=== PATIENT | male | born 1955 | race Caucasian/White ===

== ENCOUNTER 2019-01-25 16:37 | Inpatient (IN) ==
[2019-01-25] MEDS ORDERED: VANCOMYCIN 1 GM/NS 1 GM/250 ML IVPB IV ONE (17:13)
[2019-01-25] MEDS ORDERED: ROCEPHIN 1 GM in NS 50 ML IV ONE (17:13)
--- NOTE | 2019-01-25 17:42 | PROVIDER DOCUMENTATION ---
This chart was entered by Monse Britton Scribe, acting as scribe for Bucky Bustamante MD. HPI-General Adult - General Source: patient - History of Present Illness -Gen Adult Nature of Presenting Problems: 64 y/o male presents to ED with cc of infected L great toe. Pt reports he began soaking it in epsom salt a few days ago and peeled the skin off of his toe. Pt has hx diabetes. Pt states he is unsure when he last had a tetanus shot. Pt is alert and oriented. Location of Pain/Injury: reports: other (L great toe) Pain Radiation: reports: no radiation Quality of Pain: reports: aching Severity: reports: moderate Onset/Duration: reports: unsure Timing: reports: still present Context/Activities at Onset: reports: none Modifying Factors: improves with: nothing Associated Symptoms: reports: other (infected L great toe) Similar Symptoms Previously?: No Recently seen or treated by another doctor?: No <Bucky Bustamante - Last Filed: 01/25/19 17:42> <Herman Morrison - Last Filed: 01/25/19 19:40> - General Chief Complaint: Extremity Pain Stated Complaint: INFECTED TOE Time Seen by Provider: 01/25/19 16:52 Allergies/Adverse Reactions: Patient Allergies Allergy/AdvReac Type Severity Reaction Status Date / Time No Known Allergies Allergy Verified 04/02/18 13:37 Home Medications: Home Medication List Medication Instructions Recorded Confirmed Last Taken Type Paroxetine HCl [Paxil] 40 mg PO DAILY #0 tablet 01/28/15 11/09/15 Unknown Rx Buprenorphine/Naloxone S.l. 1 each SL BID #60 strip 11/11/15 Unknown Rx [Suboxone 8 mg/2 mg] Chlordiazepoxide [Librium] 25 mg PO Q6H PRN PRN #30 capsule 11/11/15 Unknown Rx Review of Systems - Adult - REVIEW OF SYSTEMS - ADULT Constitutional: denies: chills, fever Eyes: reports: no symptoms reported Ears, Nose, Mouth & Throat: reports: no symptoms reported Cardiovascular: denies: chest pain, palpitations Respiratory: denies: cough, shortness of breath Gastrointestinal: denies: abdominal pain, diarrhea, nausea, vomiting Genitourinary: reports: no symptoms reported Musculoskeletal: denies: back pain, joint pain Integumentary: reports: no symptoms reported Neurological: denies: dizziness/vertigo, seizure Psychiatric: reports: no symptoms reported Endocrine: reports: no symptoms reported Hematologic/Lymphatic: reports: no symptoms reported Allergic/Immunologic: reports: no symptoms reported All Other Systems: Reviewed and Negative <Bucky Bustamante - Last Filed: 01/25/19 17:42> Past History - Adult - PAST MEDICAL HISTORY-ADULT Review of Records: reports: Old Records Reviewed, Nursing Assessment Review, Medications Reviewed Major Childhood Illnesses: reports: denies history Cardiovascular: reports: denies history Respiratory: reports: denies history Gastrointestinal: reports: GERD Genitourinary: reports: denies history Musculoskeletal: reports: chronic pain Neurological: reports: denies history Psychiatric: reports: anxiety, depression, suicide attempt, schizophrenia Endocrine/Immune: reports: denies history - PRIOR SURGERIES/PROCEDURES Surgical/Procedure History: reports: orthopedic (extremity) (L arm), other (sinus) - IMMUNIZATION STATUS Childhood Immunizations: See Nurse Assessment Flu Vaccine: See Nurse Assessment - FAMILY HISTORY Family History: reviewed, not pertinent - SOCIAL HISTORY Smoking: greater than 1 pack/day Provider spent 3-5 mins advising pt. on dangers of tobacco.: Discussed manners to quit use, and f/u contacts for add'l counseling. Substance Use: none/never Alcohol Use Frequency: occasionally Living Situation: family <Bucky Bustamante - Last Filed: 01/25/19 17:42> Physical Exam-General - PHYSICAL EXAM-ADULT Initial Vital Signs Reviewed: Yes - CONSTITUTIONAL General Appearance: alert, no apparent distress, other (disheveled; poor hygiene) - EYES Eyes: PERRL/EOMI, pink conjunctivae - HEAD, EARS, NOSE, MOUTH & THROAT HENMT: normocephalic/atraumatic, moist mucous membranes - NECK Neck: non-tender, full range of motion - RESPIRATORY Respiratory: chest non-tender, lungs clear, normal breath sounds - CARDIOVASCULAR Cardiovascular: normal peripheral pulses, regular rate, rhythm - MUSCULOSKELETAL Extremity: normal range of motion, non-tender, normal gait - SKIN Integumentary: normal color, warm/dry, other (bilateral feet covered in dirt; L hallux hypertrophic, dystrophic with marked soft tissue swelling and blanching; erythema extending from the base of the L hallux, over the dorsal aspect of the L foot, and up to the distal rivers; tree cellulitis process starting in the R hallux) - NEUROLOGIC Neurologic: grossly normal - PSYCHIATRIC Psych/Mental Status: normal mood/affect, oriented x 3, disheveled, other (poor hygiene) <Bucky Bustamante - Last Filed: 01/25/19 17:42> Progress - PLAN OF CARE/RESULTS Progress/Plan/Lab Results: Vital Signs - 8 hr 01/25/19 16:42 Temperature 98.5 F Pulse Rate 102 H Respiratory Rate 17 Blood Pressure 145/90 O2 Sat by Pulse Oximetry 96 <Bucky Bustamante - Last Filed: 01/25/19 17:42> - PLAN OF CARE/RESULTS Progress/Plan/Lab Results: Vital Signs - 8 hr 01/25/19 16:42 01/25/19 17:14 01/25/19 17:16 Temperature 98.5 F Pulse Rate 102 H Respiratory Rate 17 23 Blood Pressure 145/90 130/71 O2 Sat by Pulse Oximetry 96 96 96 01/25/19 17:30 01/25/19 18:00 01/25/19 18:30 Temperature Pulse Rate 85 80 85 Respiratory Rate 16 21 21 Blood Pressure O2 Sat by Pulse Oximetry 96 93 L 95 01/25/19 19:02 01/25/19 19:30 01/25/19 19:34 Temperature Pulse Rate 89 84 91 H Respiratory Rate 18 15 16 Blood Pressure 135/79 134/72 O2 Sat by Pulse Oximetry 95 95 95 Laboratory Results - last 24 hr 01/25/19 01/25/19 17:40 17:40 WBC 8.86 RBC 4.12 L Hgb 12.9 L Hct 37.3 L MCV 90.5 MCH 31.3 H MCHC 34.6 RDW Std Deviation 12.5 Plt Count 159 MPV 9.2 Immature Gran % (Auto) 0.6 H Neut % (Auto) 71.2 Lymph % (Auto) 16.5 L Franklin % (Auto) 8.8 Eos % (Auto) 2.7 Baso % (Auto) 0.2 Immature Gran # (Auto) 0.05 H Neut # (Auto) 6.31 Lymph # (Auto) 1.46 Franklin # (Auto) 0.78 H Eos # (Auto) 0.24 Baso # (Auto) 0.02 ESR 62 H Sodium 134 L Potassium 3.8 Chloride 93 L Carbon Dioxide 27 Anion Gap 14 BUN 12 Creatinine 1.0 Estimated GFR/1.73 m2 > 60 BUN/Creatinine Ratio 12 Glucose 286 H Calculated Osmolality 278 Calcium 8.8 Total Bilirubin 0.36 AST 18 ALT 22 Alkaline Phosphatase 99 Total Protein 7.5 Albumin 3.3 L Globulin 4.2 Albumin/Globulin Ratio 0.8 Orders Category Date Time Status BLOOD CULTURE [BLDCUL] Stat Lab 01/25/19 17:42 Results CBC WITH DIFF [HEME] Stat Lab 01/25/19 17:40 Completed COMPREHENSIVE METABOLIC PANEL [CHEM] Stat Lab 01/25/19 17:40 Completed SED RATE [HEME] Stat Lab 01/25/19 17:40 Completed CefTRIAXONE [Rocephin] 1 gm Med 01/25/19 17:13 Discontinued 0.9% Sodium Chloride Inj [Ns] 50 ml IV NOW Morphine Med 01/25/19 19:34 Discontinued 4 mg IV NOW ONE Vancomycin 1 gm/Ns Med 01/25/19 17:13 Discontinued 1 gm in 250 ml IV NOW Pt signed out to me by Dr. Bustamante pending admission, spoke with Dr. Johnson and will admit to his service Result Diagrams: 01/25/19 17:40 01/25/19 17:40 <Herman Morrison - Last Filed: 01/25/19 19:40> Departure <Bucky Bustamante - Last Filed: 01/25/19 17:42> - Departure Date of Disposition Decision: 01/25/19 Time of Disposition Decision: 19:39 Certified Medical Emergency: Emergent - Critical Care Note This patient required my direct & personal management of CC.: No <Herman Morrison - Last Filed: 01/25/19 19:40> - Departure DIAGNOSIS: Foot ulcer due to secondary DM Cellulitis Qualifiers: Site of cellulitis: extremity Site of cellulitis of extremity: lower extremity Laterality: left Qualified Code(s): L03.116 - Cellulitis of left lower limb Disposition: ADMITTED INPATIENT 09 Condition: Stable Referrals and Follow-Ups: None,PCP [NON-STAFF PROVIDER] - Discharge Education: Steps to Quit Smoking, [id number] Attestation - Physician/ JESSE Attestation Patient care was provided by Advanced Practice Provider:: No The physician spent face to face time with patient:: Yes (e) Advanced Practice Provider documentation review:: Supervising physician onsite and consulted in the evaluation and care of this patient. The physician did have a face to face encounter with the patient. <Bucky Bustamante - Last Filed: 01/25/19 17:42> This chart was documented by the indicated scribe, (Monse Britton Scribe) and accurately reflects the services I performed and decisions made by me, Bucky Bustamante MD, as attested by the provider's signature.
[2019-01-25 18:05] LABS: BASO# 0.02 X1000 (0.0-0.2); BASO% 0.2 % (0.0-0.8); EOS# 0.24 X1000 (0.0-0.7); EOS% 2.7 % (0.0-10.0); HEMATOCRIT 37.3 % (42.0-52.0); HEMOGLOBIN 12.9 g/dL (14.0-18.0); IMM GRAN# 0.05 X1000 (0.0-0.04); IMM GRAN% 0.6 % (0.0-0.5); LYMPH# 1.46 X1000 (1.2-3.4); LYMPH% 16.5 % (20.5-51.1); MCH 31.3 PG (27-31); MCHC 34.6 g/dL (33-37); MCV 90.5 FL (81-99); MONO# 0.78 X1000 (0.11-0.59); MONO% 8.8 % (1.7-9.3); MPV 9.2 FL (7.4-10.4); NEUT# 6.31 X1000 (1.4-6.5); NEUT% 71.2 % (42.2-75.2); PLT 159 X1000 (130-400); RBC 4.12 XMIL (4.7-6.1); RDW 12.5 % (11.5-14.5); WBC 8.86 X1000 (4.8-10.8)
[2019-01-25 18:19] LABS: AGAP 14; ALB/GLOB RATIO 0.8; ALBUMIN 3.3 g/dL (3.5-5.0); ALKALINE PHOSPHATASE 99 U/L (32-122); BUN 12 mg/dL (8-22); CALCIUM 8.8 mg/dL (8.8-10.2); CHLORIDE 93 mmol/L (98-107); COSMO 278; ESTIMATED GFR > 60; GLUCOSE 286 mg/dL (70-104); GOT 18 U/L (10-34); GPT 22 U/L (10-44); POTASSIUM 3.8 mmol/L (3.5-5.1); SODIUM 134 mmol/L (136-145); TCO2 27 mmol/L (25-35); TOTAL BILIRUBIN 0.36 mg/dL (0.20-1.00); TOTAL PROTEIN 7.5 g/dL (6.3-8.3)
[2019-01-25 19:05] LABS: SED RATE 62 mm/hr (0-15)
[2019-01-25] MEDS ORDERED: MORPHINE IV ONE (19:34)
--- NOTE | 2019-01-25 21:16 | HISTORY AND PHYSICAL ---
PRIMARY CARE PHYSICIAN: Dr. Renetta Yang. CHIEF COMPLAINT: Left toe pain. HISTORY OF PRESENTING ILLNESS: A 64-year-old male with a history of diabetes mellitus type 2, hypertension, COPD who had presented to emergency department with 4 days history of having worsening left toe pain and drainage from a wound around the toe. He states that his toenail was coming out. He kept on trying to cut it and he was soaking it on Epson salt. He states that after that the wound in the toe started getting larger and his toe started swelling and draining foul material. He was evaluated in the emergency department. It seemed that his toe was infected and due to his presenting symptoms, he will need admission for further management. At the time of my examination, patient denied any headache, fever, chills, chest pain, shortness of breath or any weight changes but complained of left toe pain. PAST MEDICAL HISTORY: Includes diabetes mellitus type 2, hypertension, COPD. PAST SURGICAL HISTORY: Sinus surgery. ALLERGIES: No known drug allergies. CURRENT MEDICATIONS: Include Suboxone 8 mg 1 tablet sublingual b.i.d., Librium 25 mg p.o. q.6 hours, Paxil 40 mg p.o. daily. SOCIAL HISTORY: A 40 pack years history of smoking. Denies any alcohol use. Admits to IV drug abuse in the past. FAMILY HISTORY: No history of coronary disease. REVIEW OF SYSTEMS: Fourteen point review of system is as in HPI. Other systems negative. PHYSICAL EXAMINATION: GENERAL: Cooperative, friendly male. He is resting comfortably now. VITAL SIGNS: Temperature 98.5 degrees, pulse 102, respirations 17, blood pressure 145/90. HEENT: Atraumatic, normocephalic. Extraocular movements intact. PERRLA. NECK: Supple. CHEST: Clear to auscultation. CARDIOVASCULAR: Regular rate and rhythm. ABDOMEN: Soft. Positive bowel sounds. EXTREMITIES: Left great toe seems infected and moderate erythema and edema. : No bladder distention. SKIN: Warm. NEUROLOGIC: Nonfocal. LABORATORIES AND STUDIES: WBC is 8.86, hemoglobin 12.9, hematocrit 37.3, platelets 159,000. Sodium 134, potassium 3.8, chloride 93, CO2 27, BUN is 12, creatinine is 1.0, glucose 286. ASSESSMENT: A 64-year-old male with a history of diabetes mellitus type 2, hypertension, chronic obstructive pulmonary disease, who presented to the emergency department with 4 days history of having wound infection on his left great toe. He states that it has been worsening and is having some foul discharge from it. He was evaluated in the emergency department. Due to his presenting symptoms, he will need admission for further management. 1. Left great toe wound infection. 2. Diabetes mellitus type 2. 3. Hypertension. 4. Chronic obstructive pulmonary disease. PLAN: 1. We will admit patient to medical floor with telemetry. 2. We will check wound culture. Start patient on IV antibiotics. 3. We will consult General Surgery for possible debridement. 4. Monitor blood glucose and put the patient on sliding scale insulin regimen. 5. Monitor blood pressure. Resume antihypertensive agent. 6. We will continue with Rae [email or web address]. 7. I counseled the patient on smoking cessation. 8. Put patient on DVT prophylaxis with SCD. 9. We will continue to follow reassess, make further recommendation based on patient's clinical course. cc: Jose Johnson MD
[2019-01-25] MEDS ORDERED: ZOFRAN IV PRN (21:38)
[2019-01-25] MEDS ORDERED: VANCOMYCIN IV PER PHARMACY MISC SCH (21:38)
[2019-01-25] MEDS ORDERED: VANCOMYCIN 2,500 MG in NS 500 ML IV ONE (23:00)
[2019-01-25] MEDS: LOVENOX SUBQ SCH (23:37)
[2019-01-26] MEDS ORDERED: NICODERM PATCH TD ONE (00:07)
[2019-01-26] MEDS: MORPHINE IV PRN ×3 (00:36→20:23)
[2019-01-26 05:08] LABS: BASO# 0.02 X1000 (0.0-0.2); BASO% 0.3 % (0.0-0.8); EOS# 0.27 X1000 (0.0-0.7); EOS% 3.5 % (0.0-10.0); HEMATOCRIT 34.2 % (42.0-52.0); HEMOGLOBIN 11.6 g/dL (14.0-18.0); IMM GRAN# 0.05 X1000 (0.0-0.04); IMM GRAN% 0.6 % (0.0-0.5); LYMPH# 1.74 X1000 (1.2-3.4); LYMPH% 22.5 % (20.5-51.1); MCH 30.9 PG (27-31); MCHC 33.9 g/dL (33-37); MCV 91.2 FL (81-99); MONO# 0.76 X1000 (0.11-0.59); MONO% 9.8 % (1.7-9.3); MPV 8.9 FL (7.4-10.4); NEUT# 4.88 X1000 (1.4-6.5); NEUT% 63.3 % (42.2-75.2); PLT 180 X1000 (130-400); RBC 3.75 XMIL (4.7-6.1); RDW 12.2 % (11.5-14.5); WBC 7.72 X1000 (4.8-10.8)
[2019-01-26 05:48] LABS: INR 1.12; PROTIME 14.5 Seconds (11.0-16.0)
[2019-01-26 05:54] LABS: AGAP 9; BUN 10 mg/dL (8-22); CALCIUM 8.6 mg/dL (8.8-10.2); CHLORIDE 98 mmol/L (98-107); COSMO 279; CREATININE 0.9 mg/dL (0.7-1.2); ESTIMATED GFR > 60; GLUCOSE 280 mg/dL (70-104); POTASSIUM 3.5 mmol/L (3.5-5.1); SODIUM 135 mmol/L (136-145); TCO2 28 mmol/L (25-35)
[2019-01-26] MEDS ORDERED: NS 250 ML ONE (08:01)
[2019-01-26] MEDS: VANCOMYCIN 1,300 MG in NS 250 ML IV SCH ×2 (11:40→23:57)
--- NOTE | 2019-01-26 14:05 | Diag Imaging Result Doc PS360 ---
FOOT 2 VIEWS LEFT - 01/26/2019 INDICATION: Rule out left toe osteomyelitis TECHNIQUE: COMPARISON: None FINDINGS: There is significant soft tissue swelling over the great toe. There is soft tissue gas within the plantar surface of the great toe. No foreign body. No fracture or erosion. IMPRESSION: Soft tissue swelling with soft tissue gas at the plantar surface of the great toe. Electronically signed by Rory Avila 01/26/2019 2:03 PM
--- NOTE | 2019-01-26 15:27 | PROGRESS NOTE ---
DATE: 01/26/2019 INTERVAL HISTORY: He was admitted for a left great toe wound which he had developed since at least a week ago. He was started on broad-spectrum antibiotics. He did have temperature of 100.2 degrees during hospital admission, though he was only briefly tachycardic, and his WBC count was normal. SUBJECTIVE: He is feeling fine. He complains of some pain over his left great toe, but he thinks the swelling is better. He is diabetic, noninsulin dependent. He is not sure whether it is well controlled or not. He denies any chest pain, shortness of breath. He does use inhaler at home for chronic obstructive pulmonary disease. He denies any nausea, vomiting, or abdominal pain. OBJECTIVE: Vitals: Temperature 97.8 degrees, pulse 85, respiratory rate 21, blood pressure 119/61, he is saturating 99% on room air. On physical examination, obese, not in any acute distress. Oral cavity is moist. Air entry bilaterally equal. No wheeze or rhonchi, mild inspiratory crackles in bilateral bases. S1, S2 normal, appears irregularly irregular. No murmur, rub, or gallop. Abdomen is obese, soft, nontender. Right lower extremity appears normal. Left lower extremity has edema extending up to midshin level. There is a pus- filled left great toe with surrounding erythema. I could not appreciate any dorsalis pedis or posterior tibial pulses because of edema. He does have significant tenderness on foot movement. LABS: He does not have leukocytosis, normal hemoglobin. His electrolytes are normal, he does have hyperglycemia. ASSESSMENT AND PLAN: 1. Left great toe diabetic foot infection, likely necrotic and necrotizing cellulitis. I am awaiting Surgery team's recommendation. I will keep him on intravenous fluids, intravenous vancomycin, and I will change his intravenous ceftriaxone to intravenous Zosyn for diabetic foot infection. I will keep him on intravenous morphine as needed for pain. His foot x-ray does detect gas which suggests necrotizing infection. He may need prompt surgical intervention. Surgery team has been paged. 2. History of zew-cwkaeiy-[id number] diabetes mellitus with hyperglycemia. Follow up hemoglobin A1c. I will start him on sliding scale insulin with fingersticks every 6 hours. He was counseled about weight reduction. 3. Irregular heart rhythm on examination. A stat magnesium level has been checked, and I am awaiting EKG. He denies known history of coronary artery disease or stent. 4. History of intravenous drug use and opioid dependence. He has been on a buprenorphine maintenance program. I am keeping him on intravenous morphine at the moment. 5. Others. Continue enoxaparin for DVT prophylaxis. DISPOSITION: I will continue to monitor patient in telemetry unit, awaiting further surgical recommendations as he may need incision debridement of his wound. Plan of care discussed with him. His questions have been answered. cc: Basil Aguilar MD MTDD
--- NOTE | 2019-01-26 15:40 | EKG Report ---
Test Performed on : 01/26/2019 2:05:14 PM Test Reason : Baseline EKG Blood Pressure : / mmHG Vent. Rate : 083 BPM Atrial Rate : 083 BPM P-R Int : 164 ms QRS Dur : 092 ms QT Int : 382 ms P-R-T Axes : 033 -26 026 degrees QTc Int : 448 ms Sinus rhythm. with premature atrial complexes. with aberrant conduction. Otherwise normal ECG When compared with ECG of 31-DEC-2012 13:29, aberrant conduction. is now present Confirmed by Kasey CARDOZA, Adithya Garcia ([id number]) on 01/27/2019 11:07:22 PM
[2019-01-26] MEDS: ZOSYN 3.375 GM in NS 50 ML IV SCH ×2 (15:59→20:22)
[2019-01-26] MEDS: LR 1,000 ML IV SCH (16:00)
[2019-01-26] MEDS ORDERED: PAXIL PO ONE (17:33)
[2019-01-26] MEDS: HUMALOG SUBQ SCH ×2 (18:08→23:37)
--- NOTE | 2019-01-26 19:43 | GENERAL SURGERY CONSULTATION ---
DATE: 01/26/2019 REASON FOR CONSULTATION: Left first toe infection. CHIEF COMPLAINT: Swelling left first toe. HPI: A 64-year-old gentleman poorly-controlled diabetes. He presented with swelling and erythema left foot after what he says is an injury to his left first toe. He soaked it in Epson salt and became acutely worse. He has had purulent drainage, low-grade fevers and he was admitted where he was found to be hyperglycemic. He denies any previous blood vessel surgery. MEDICAL HISTORY: Diabetes, hypertension, COPD. SURGICAL HISTORY: He has had sinus operation but no vascular procedure. MEDICATION: Negative for anticoagulants but he does take Suboxone and Librium. SOCIAL HISTORY: Heavy smoking history pack a day. No alcohol, IV drug use in the past. He has a significant other here with him. FAMILY HISTORY: Reviewed, noncontributory. REVIEW OF SYSTEMS: Ten point review of systems was performed and negative otherwise mentioned in HPI. EXAM: He is afebrile, pulse 73, blood pressure 112/51, oxygen saturation 94%.General: He is alert, no acute distress. HEENT: No scleral icterus. No cervical mass. Cardiovascular: Normal rate. Pulmonary: No increased work of breathing. Abdomen: Soft, nontender. Integument: Warm and dry. Psychiatric: Appropriate affect. Peripheral vascular: He has bilateral lower extremity edema, palpable pedal pulses. Musculoskeletal: He has a blister to his right first toe distally but no cellulitis. No purulent drainage. His left first toe has significant deformity with purulent drainage at the base and significant edema with cellulitis extending up to the calf level. There is no crepitus proximally. Lymphatic: No inguinal adenopathy. LAB: White count 7, hematocrit 34. Creatinine 0.9, glucose has been as high as 314, albumin is 3.3. I reviewed a foot x-ray that shows soft tissue swelling and plantar soft tissue gas. ASSESSMENT AND PLAN: 64-year-old gentleman with severe infection of left first toe cellulitis extending proximally. Recommended amputation of his toe. He does seem to have adequate perfusion. I discussed and stressed the importance of smoking cessation, glucose control. Make him n.p.o. at midnight, take him operating room tomorrow for left first toe amputation and debridement of right first toe. cc: Ryan Richardson MD
[2019-01-26] MEDS ORDERED: ROCEPHIN 1 GM in NS 50 ML IV SCH (20:00)
[2019-01-26] MEDS: LOVENOX SUBQ SCH (21:06)
[2019-01-27] MEDS: MORPHINE IV PRN ×3 (00:39→15:16)
[2019-01-27] MEDS: ZOSYN 3.375 GM in NS 50 ML IV SCH ×4 (02:28→20:55)
[2019-01-27] MEDS: LR 1,000 ML IV SCH ×2 (05:37→15:43)
[2019-01-27] MEDS: HUMALOG SUBQ SCH ×4 (05:39→22:26)
[2019-01-27 07:13] LABS: BASO# 0.03 X1000 (0.0-0.2); BASO% 0.5 % (0.0-0.8); EOS# 0.23 X1000 (0.0-0.7); EOS% 4.1 % (0.0-10.0); HEMATOCRIT 35.1 % (42.0-52.0); HEMOGLOBIN 11.5 g/dL (14.0-18.0); IMM GRAN# 0.03 X1000 (0.0-0.04); IMM GRAN% 0.5 % (0.0-0.5); LYMPH# 1.58 X1000 (1.2-3.4); LYMPH% 28.4 % (20.5-51.1); MCH 30.3 PG (27-31); MCHC 32.8 g/dL (33-37); MCV 92.4 FL (81-99); MONO# 0.54 X1000 (0.11-0.59); MONO% 9.7 % (1.7-9.3); NEUT# 3.16 X1000 (1.4-6.5); NEUT% 56.8 % (42.2-75.2); PLT 185 X1000 (130-400); RDW 12.4 % (11.5-14.5); WBC 5.57 X1000 (4.8-10.8)
[2019-01-27 07:18] LABS: HEMOGLOBIN A1C 7.6 % (4.8-6.0)
[2019-01-27 07:47] LABS: AGAP 9; BUN 10 mg/dL (8-22); CHLORIDE 102 mmol/L (98-107); COSMO 285; CREATININE 1.2 mg/dL (0.7-1.2); ESTIMATED GFR > 60; GLUCOSE 180 mg/dL (70-104); POTASSIUM 3.8 mmol/L (3.5-5.1); SODIUM 141 mmol/L (136-145); TCO2 30 mmol/L (25-35)
[2019-01-27] MEDS: PAXIL PO SCH (08:12)
[2019-01-27] MEDS ORDERED: PROTONIX IV ONE (08:33)
[2019-01-27] MEDS ORDERED: SODIUM CHLORIDE 0.9% INJ ONE (08:33)
[2019-01-27] MEDS: VANCOMYCIN 1,300 MG in NS 250 ML IV SCH ×2 (11:03→23:15)
[2019-01-27] MEDS: DILAUDID ONE ×7 (17:47→18:18)
--- NOTE | 2019-01-27 18:11 | OPERATIVE NOTE ---
PROCEDURE DATE: 01/27/2019 SURGEON: Ryan Richardson MD PREOPERATIVE DIAGNOSES: 1. Left first toe diabetic infection. 2. Right first toe ulcer. POSTOPERATIVE DIAGNOSES: 1. Left first toe diabetic infection. 2. Right first toe ulcer. PROCEDURE PERFORMED: 1. Amputation of the left first toe in a transmetatarsal fashion. 2. Excisional debridement of right first toe, 3 x 2 cm, down to subcutaneous tissue. ESTIMATED BLOOD LOSS: 20 mL. SPECIMENS: Left first toe and distal metatarsal. INDICATIONS: A gentleman with poorly controlled diabetes, who has a severely swollen, purulent draining, left first toe with cellulitis. He also has a superficial ulceration of the right first toe. FINDINGS: Necrosis and purulence of his left first toe with superficial ulceration containing pus in the right first toe. OPERATIVE NOTE: Risks, benefits, and alternatives were discussed patient and he consented to the procedure, seen preoperatively where the surgery site was confirmed and marked. He was taken to the operating room and placed in supine position. General anesthesia was induced. He was on scheduled antibiotics. His bilateral feet were prepped with Betadine and draped in the usual fashion. After a time-out, an elliptical incision was made around the left first toe and carried down through the joint and then we amputated the distal metatarsal head at the distal portion of the metatarsal, removing the sesamoid bones. There was good pulsatile bleeding noted. We irrigated the wound after debriding back the metatarsal with a rongeur forceps and we dressed the wound with Vashe dressings, Kerlix, and an Issa wrap. We then turned our attention the right distal first toe. Using a #15 blade, we excised the lesion back to healthy bleeding tissue. There was some purulence here that was expressed, but the underlying was healthy. A similar Vashe dressing was applied. He was woken and transferred to Recovery. There was no complication. Counts were correct. I attempted to speak with his family. cc: Ryan Richardson MD
--- NOTE | 2019-01-27 19:51 | PROGRESS NOTE ---
DATE: 01/27/2019 SUBJECTIVE: The patient is resting comfortably in bed. He has no complaints. OBJECTIVE: Vital Signs: Temperature 97.6 degrees, blood pressure 124/67, heart rate 92, respirations 18, O2 saturations 97% on room air. General: This is a morbidly obese male lying in bed in no acute distress. Heart: S1, S2 normal. Regular rate and rhythm. Lungs: Clear to auscultation bilaterally. Abdomen: Positive bowel sounds. Soft, nontender, nondistended. Extremities: The left and right feet are wrapped in clean, dry dressing. Neurologic: The patient is alert and oriented x4. LABS: Reviewed. ASSESSMENT AND PLAN: 1. 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 Continue with wound care and antibiotic therapy as directed by the general surgeon. 2. Diabetes mellitus. Continue on sliding scale insulin. 3. Morbid obesity. Aware. 4. Tobacco dependence. The patient has been counseled about smoking cessation. 5. Situational depression. Continue on Paxil. 6. Deep vein thrombosis prophylaxis. Continue on Lovenox. cc: Angie Matthews MD MTDD
[2019-01-27] MEDS: LOVENOX SUBQ SCH (20:55)
[2019-01-28] MEDS: MORPHINE IV PRN ×5 (05:03→19:14)
[2019-01-28] MEDS: LR 1,000 ML IV SCH (05:05)
[2019-01-28] MEDS: ZOSYN 3.375 GM in NS 50 ML IV SCH ×3 (06:14→17:16)
[2019-01-28] MEDS: HUMALOG SUBQ SCH (06:14)
[2019-01-28] MEDS: HUMULIN R SUBQ SCH ×4 (06:34→21:34)
[2019-01-28] MEDS ORDERED: INSULIN PEN NEEDLES ONE (06:58)
[2019-01-28 07:04] LABS: HEMATOCRIT 32.4 % (42.0-52.0); HEMOGLOBIN 10.8 g/dL (14.0-18.0); MCH 30.7 PG (27-31); MCHC 33.3 g/dL (33-37); MPV 8.6 FL (7.4-10.4); RBC 3.52 XMIL (4.7-6.1); RDW 12.2 % (11.5-14.5); WBC 5.32 X1000 (4.8-10.8)
[2019-01-28 07:36] LABS: AGAP 10; BUN 15 mg/dL (8-22); CALCIUM 8.4 mg/dL (8.8-10.2); CHLORIDE 97 mmol/L (98-107); COSMO 285; CREATININE 1.1 mg/dL (0.7-1.2); ESTIMATED GFR > 60; GLUCOSE 356 mg/dL (70-104); POTASSIUM 4.3 mmol/L (3.5-5.1); SODIUM 135 mmol/L (136-145); TCO2 28 mmol/L (25-35)
[2019-01-28] MEDS: PAXIL PO SCH (08:58)
[2019-01-28] MEDS ORDERED: LEVEMIR SUBQ SCH ×2 (09:00)
[2019-01-28] MEDS: VANCOMYCIN 1,300 MG in NS 250 ML IV SCH ×2 (12:20→22:16)
[2019-01-28] MEDS: NICODERM PATCH TD SCH (15:25)
--- NOTE | 2019-01-28 19:34 | PROGRESS NOTE ---
DATE: 01/28/2019 SUBJECTIVE: The patient is sitting up at the edge of bed, eating. He has no complaints. OBJECTIVE: Vital signs: Temperature 98.2, blood pressure 142/74, heart rate 89, respirations 19, O2 saturation 96% on room air. General: This is an elderly, overweight male sitting up at the edge of the bed in no acute distress. Heart: S1, S2 normal. Regular rate and rhythm. Lungs: Clear to auscultation bilaterally. Abdomen: Positive bowel sounds. Soft, obese, nontender, nondistended. Extremities: Both feet are wrapped in clean dry dressings. LABS: Reviewed. ASSESSMENT AND PLAN: 1. 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 Continue with antibiotics and wound care as directed by the general surgeon. 2. Uncontrolled insulin-dependent diabetes mellitus. We will increase the patient's Levemir dosage to 30 units subcutaneously twice a day. Continue with sliding-scale insulin coverage every 4 hours. Continue with diabetic diet. 3. Hypertension. Controlled. 4. Morbid obesity. Aware. 5. Situational depression. Continue on Paxil. 6. Tobacco dependence. Continue NicoDerm patch. The patient has been counseled about smoking cessation. 7. Deep vein thrombosis prophylaxis. Continue on Lovenox. cc: Angie Matthews MD MTDD
[2019-01-28 20:12] LABS: URINE SOURCE CLEAN CATCH
[2019-01-28] MEDS: DILAUDID ONE ×2 (20:13)
[2019-01-28 20:19] LABS: BILIRUBIN URINE NEGATIVE (NEGATIVE); BLOOD URINE NEGATIVE (NEGATIVE); COLOR YELLOW; GLUCOSE URINE NEGATIVE (NEGATIVE); KETONE URINE NEGATIVE (NEGATIVE); LEUKOCYTES URINE NEGATIVE (NEGATIVE); NITRITE URINE NEGATIVE (NEGATIVE); PH URINE 6.5; PROTEIN URINE NEGATIVE (NEGATIVE); TURBIDITY URINE CLEAR (CLEAR); UR EPITHELIAL CELLS <10 /HPF (<10); URINE BACTERIA NEGATIVE /HPF; URINE RBC <10 /HPF (<10); URINE WBC <10 /HPF (<10); UROBILINOGEN URINE NORMAL (NORMAL)
[2019-01-28 20:53] LABS: UR AMPHETAMINES QUAL NONE DETECTED (NONE DETECT); UR BARBITUATES QUAL NONE DETECTED (NONE DETECT); UR BENZODIAZEPIN QUAL NONE DETECTED (NONE DETECT); UR CANNABINOIDS QUAL NONE DETECTED (NONE DETECT); UR COCAINE QUAL NONE DETECTED (NONE DETECT); UR METHADONE QUAL NONE DETECTED (NONE DETECT); UR OPIATES QUAL PRESUMPTIVE POSITIVE (NONE DETECT); UR OXYCODONE QUAL NONE DETECTED (NONE DETECT); UR PCP QUAL NONE DETECTED (NONE DETECT)
[2019-01-28] MEDS: LOVENOX SUBQ SCH (21:35)
[2019-01-28] MEDS: LEVEMIR SUBQ SCH (21:35)
--- NOTE | 2019-01-28 22:32 | GENERAL SURGERY PROGRESS NOTE ---
DATE: 01/28/2019 SUBJECTIVE: Doing well. Feels much better. No fevers. No tachycardia. Has drainage of bilateral dressings. The toes well perfused. White count is count 5, hematocrit 32, creatinine is 1.1, glucose remains elevated. ASSESSMENT AND PLAN: A 64-year-old gentleman status post left first toe amputation and debridement of right first toe. Continue local wound care, antibiotics. I do think we have adequate source control at this juncture, but we will continue to treat his cellulitis with antibiotics and continue Vashe wet-to-dry dressings twice daily. cc: Ryan Richardson MD
[2019-01-29] MEDS: MORPHINE IV PRN ×6 (00:04→22:16)
[2019-01-29] MEDS: HUMULIN R SUBQ SCH ×6 (00:12→20:56)
[2019-01-29] MEDS: ZOSYN 3.375 GM in NS 50 ML IV SCH ×4 (02:59→20:56)
[2019-01-29 07:44] LABS: HEMATOCRIT 36.7 % (42.0-52.0); HEMOGLOBIN 12.1 g/dL (14.0-18.0); MCH 30.7 PG (27-31); MCV 93.1 FL (81-99); MPV 8.9 FL (7.4-10.4); RBC 3.94 XMIL (4.7-6.1); RDW 12.4 % (11.5-14.5); WBC 6.03 X1000 (4.8-10.8)
[2019-01-29 08:11] LABS: CALCIUM 8.6 mg/dL (8.8-10.2); CREATININE 1.3 mg/dL (0.7-1.2); POTASSIUM 3.8 mmol/L (3.5-5.1)
[2019-01-29] MEDS: LEVEMIR SUBQ SCH ×2 (09:00→09:34)
[2019-01-29] MEDS: NICODERM PATCH TD SCH (09:22)
[2019-01-29] MEDS: PAXIL PO SCH (09:22)
[2019-01-29] MEDS: NS 1,000 ML IV SCH ×2 (13:12→22:29)
--- NOTE | 2019-01-29 16:10 | PROGRESS NOTE ---
DATE: 01/29/2019 SUBJECTIVE: The patient is resting comfortably in bed. No acute events noted overnight. OBJECTIVE: Vital Signs: Temperature 99 degrees, blood pressure 131/74, heart rate 75, respirations 18. O2 saturations 96% on room air. General: This is a chronically ill-appearing elderly male lying in bed in no acute distress. Heart: S1, S2. Normal. Lungs: Clear to auscultation bilaterally. Abdomen: Positive bowel sounds. Soft, nontender, nondistended. Extremities: Both the left and right feet are wrapped in a clean dry dressing. LABS: White blood cell count 6, hemoglobin 12, hematocrit 36, platelets 198,000. Sodium 136, potassium 3.8, chloride 98, CO2 29, BUN 17, creatinine 1.3, glucose 154. ASSESSMENT AND PLAN: 1. 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 Continue with antibiotics and wound care. 2. Uncontrolled insulin-dependent diabetes mellitus. Slightly improved today. We will continue on Levemir twice a day and sliding scale insulin. 3. Hypertension. Controlled. 4. Morbid obesity. Aware. 5. Situational depression. Continue on Paxil. 6. Tobacco dependence. The patient has been counseled about smoking cessation. 7. Deep vein thrombosis prophylaxis. Continue on Lovenox. DISPOSITION: The patient can be discharged once cleared by the general surgeon. cc: Angie Matthews MD MTDD
--- NOTE | 2019-01-29 18:05 | GENERAL SURGERY PROGRESS NOTE ---
DATE: 01/29/2019 SUBJECTIVE/OBJECTIVE: He feels well. No fevers. The dressings are clean. I reviewed his labs. Glucoses are better. ASSESSMENT AND PLAN: This is a 64-year-old gentleman status post left first toe amputation with debridement of right first toe. We will continue with local wound care and antibiotics. He has a PICC line. cc: Ryan Richardson MD
[2019-01-29] MEDS: LOVENOX SUBQ SCH (20:57)
[2019-01-29] MEDS ORDERED: LEVEMIR SUBQ SCH (21:00)
[2019-01-30] MEDS: HUMULIN R SUBQ SCH ×5 (00:35→17:09)
[2019-01-30 01:22] LABS: UR CREAT RANDOM 21.8 mg/dL (14-26)
[2019-01-30] MEDS: ZOSYN 3.375 GM in NS 50 ML IV SCH ×3 (02:47→14:50)
[2019-01-30] MEDS: MORPHINE IV PRN ×3 (02:48→13:33)
[2019-01-30] MEDS: NS 1,000 ML IV SCH (02:48)
[2019-01-30] MEDS ORDERED: INSULIN PEN NEEDLES ONE (05:20)
[2019-01-30 07:19] LABS: CALCIUM 9.7 mg/dL (8.8-10.2); CREATININE 1.3 mg/dL (0.7-1.2); POTASSIUM 3.8 mmol/L (3.5-5.1)
[2019-01-30 07:33] LABS: HEMATOCRIT 41.8 % (42.0-52.0); MCH 31.2 PG (27-31); MCHC 33.5 g/dL (33-37); MCV 93.1 FL (81-99); MPV 8.6 FL (7.4-10.4); RBC 4.49 XMIL (4.7-6.1); RDW 12.9 % (11.5-14.5); WBC 7.85 X1000 (4.8-10.8)
[2019-01-30] MEDS: NICODERM PATCH TD SCH (08:17)
[2019-01-30] MEDS: PAXIL PO SCH (08:17)
[2019-01-30] MEDS: LEVEMIR SUBQ SCH (08:18)
[2019-01-30 15:33] VITALS: BP 139/82
--- NOTE | 2019-01-30 19:24 | GENERAL SURGERY PROGRESS NOTE ---
DATE: 01/30/2019 SUBJECTIVE: Doing okay. Dressing changes going alright. No fevers. No tachycardia. I reviewed his labs. OBJECTIVE: His dressings are clean at this point. Cellulitis has resolved. ASSESSMENT AND PLAN: This is a 64-year-old gentleman with left diabetic toe infection. From a surgical perspective, he go home with wet-to-dry dressing advised twice daily and see me within the week. We will defer antibiotics to the Infectious Disease but they do have a PICC line and I think plan for outpatient antibiotics. We will follow along. Discussed the importance of offloading and wound care. I have asked the nurse to educate him on this. cc: Ryan Richardson MD
--- NOTE | 2019-02-01 18:53 | DISCHARGE SUMMARY ---
ADMISSION DATE: 01/25/2019 DISCHARGE DATE: 01/30/2019 FINAL DISCHARGE DIAGNOSES: 1. 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 2. Uncontrolled insulin-dependent diabetes mellitus. 3. Hypertension. 4. Morbid obesity. 5. Tobacco dependence. 6. Situational depression. CONSULTATIONS: General Surgery consultation with Dr. Richardson. PROCEDURES: Amputation of the left 1st toe and excisional debridement of the right 1st toe performed on 01/27/2019. HOSPITAL COURSE: Mr. Cervantes is a 64-year-old male with a history of hypertension, diabetes mellitus type 2, and situational depression who presented to the ER with infections involving both the left 1st toe and the right 1st toe. The patient was admitted to the hospitalist service. A foot x-ray was done on the left to rule out osteomyelitis and did reveal soft tissue swelling with gas at the plantar surface of the great toe. General Surgery was consulted, and the patient was taken to the OR on 01/27/2019 at which time the patient underwent amputation of the left 1st toe and excisional debridement of the right 1st toe. Broad-spectrum antibiotics were initiated prior to surgery and post surgery. The patient was noted to be poorly controlled with his diabetes, so he was started on insulin therapy. With the initiation of insulin, the patient's blood sugars improved from the upper 200s to the 120-150 range. The patient was also urged and advised to quit smoking to aid wound healing in the long run. The patient continued to improve clinically and was ultimately cleared for discharge home on 01/30/2019. DISCHARGE MEDICATIONS: 1. Levemir 30 units subcutaneous at bedtime. 2. Levemir 35 units subcutaneous in the morning. 3. Augmentin 875/125 one tab oral twice a day. 4. Paxil 40 mg p.o. daily. 5. Subutex 24 mg sublingual daily. DISCHARGE DIET: 1800 ADA diet, low-sodium diet. ACTIVITY: As tolerated. FOLLOWUP INSTRUCTIONS: The patient will need to follow up with his primary care physician in 1 to 2 weeks. The patient will need to follow up with Dr. Richardson as scheduled by his clinic. cc: Angie Matthews MD
== END 2019-01-30 19:00 | disposition home health service (06) | DRG 617 ==
LOC: ED 16:37 → SUATTDRO 21:05 → 3N 21:05
PROVIDERS: ATTEND Internal Medicine